=== PATIENT | male | born 1980 | race American Indian/Alaskan Native ===

== ENCOUNTER 2020-09-22 05:56 | Inpatient (IN) | payer OTHER ==
[2020-09-22] MEDS ORDERED: MORPHINE 2 MG/1 ML INJ IV ONE (06:34)
--- NOTE | 2020-09-22 06:37 | Emergency Department Report ---
ED Chest Pain HPI - General Chief Complaint: Chest Pain Stated Complaint: CHEST PAIN Time Seen by Provider: 09/22/20 06:21 Source: patient Mode of arrival: Stretcher Limitations: No Limitations - History of Present Illness Initial Comments: This is a 40-year-old -[place] male presents to the emergency department in custody from [facility] with a complaint of some chest tightness after he has missed his last 3 peritoneal dialysis sessions because of incarceration. He complains of some generalized chest tightness, but denies any significant shortness of breath. Denies any fever, lower extremity or abdominal swelling, any concerns of infection to the peritoneal dialysis catheter. The patient is from [facility] and therefore does not have a local primary care physician or it field technician. He has not taken, nor been given anything for his symptoms prior to presentation today. - Related Data Home Medications Medication Instructions Recorded Confirmed Last Taken Amlodipine Besylate [Norvasc] 10 mg PO DAILY 09/22/20 09/22/20 Unknown Colchicine [Colcrys] 0.6 mg PO DAILY 09/22/20 09/22/20 Unknown Febuxostat [Uloric] 40 mg PO DAILY 09/22/20 09/22/20 Unknown Furosemide [Lasix] 40 mg PO DAILY 09/22/20 09/22/20 Unknown Sevelamer Carbonate [Renvela] 800 mg PO TIDWM 09/22/20 09/22/20 Unknown calcitrioL [Rocaltrol] 0.5 mg PO QDAY 09/22/20 09/22/20 Unknown cloNIDine [Catapres] 0.1 mg PO BID 09/22/20 09/22/20 Unknown Allergies Allergy/AdvReac Type Severity Reaction Status Date / Time No Known Drug Allergies Allergy Unknown Verified 09/22/20 06:35 Heart Score - HEART Score History: Slightly suspicious EKG: Normal Age: < 45 Risk factors: 1-2 risk factors Troponin: 1-3x normal limit HEART Score: 2 - EKG Read Time Time EKG Completed: 07:00 EKG Read Time: 07:01 - Critical Actions Critical Actions: 0-3 pts:0.9-1.7%risk of adverse cardiac event.Candidate for discharge ED Review of Systems ROS: Stated complaint: CHEST PAIN Other details as noted in HPI Comment: All other systems reviewed and negative Constitutional: denies: chills, fever Eyes: denies: eye pain, vision change ENT: denies: ear pain, throat pain Respiratory: denies: cough, shortness of breath Cardiovascular: chest pain. denies: palpitations, edema Gastrointestinal: denies: abdominal pain, vomiting Genitourinary: denies: dysuria, discharge Musculoskeletal: denies: back pain, arthralgia Skin: denies: rash, lesions Neurological: denies: headache, weakness ED Past Medical Hx - Past Medical History Hx Hypertension: Yes Hx Renal Disease: Yes Additional medical history: gout - Social History Smoking Status: Current Every Day Smoker - Medications Home Medications: Home Medications Medication Instructions Recorded Confirmed Last Taken Type Amlodipine Besylate [Norvasc] 10 mg PO DAILY 09/22/20 09/22/20 Unknown History Colchicine [Colcrys] 0.6 mg PO DAILY 09/22/20 09/22/20 Unknown History Febuxostat [Uloric] 40 mg PO DAILY 09/22/20 09/22/20 Unknown History Furosemide [Lasix] 40 mg PO DAILY 09/22/20 09/22/20 Unknown History Sevelamer Carbonate [Renvela] 800 mg PO TIDWM 09/22/20 09/22/20 Unknown History calcitrioL [Rocaltrol] 0.5 mg PO QDAY 09/22/20 09/22/20 Unknown History cloNIDine [Catapres] 0.1 mg PO BID 09/22/20 09/22/20 Unknown History ED Physical Exam - General Limitations: No Limitations - Other Other exam information: GENERAL: The patient is well-developed well-nourished. HENT: Normocephalic. Atraumatic. Patient has moist mucous membranes. EYES: Extraocular motions are intact. NECK: Supple. Trachea is midline. CHEST/LUNGS: Mild coarse breath sounds. No tachypnea accessory muscle use. There is no respiratory distress noted. HEART/CARDIOVASCULAR: Regular. There is no tachycardia. There is no murmur. ABDOMEN: Abdomen is soft, nontender. Patient has normal bowel sounds. Peritoneal dialysis catheter intact without signs of infection. SKIN: Skin is warm and dry. NEURO: The patient is awake, alert, and oriented. The patient is cooperative. The patient has no focal neurologic deficits. Normal speech. MUSCULOSKELETAL: There is no tenderness or deformity. There is no limitation range of motion. ED Course Vital Signs 09/22/20 09/22/20 09/22/20 06:08 08:27 09:00 Temperature 98.5 F Pulse Rate 81 100 H 78 Respiratory 18 15 12 Rate Blood Pressure 140/89 Blood Pressure 127/83 148/90 [Left] O2 Sat by Pulse 98 100 99 Oximetry 09/22/20 09/22/20 09/22/20 10:00 11:00 12:31 Temperature Pulse Rate 75 72 90 Respiratory 12 12 13 Rate Blood Pressure Blood Pressure 128/77 163/98 125/86 [Left] O2 Sat by Pulse 100 99 100 Oximetry - Consultations Consultation #1: 09/22/20 08:04 I spoke to the it field technician on-call, Dr. Rocha. He informed me that the patient may potentially need to be switched to hemodialysis depending on how long he is in custody or incarcerated. Patient will be admitted to the hospital with his chest pain and elevated troponin level, and the nephrology service will consult on this patient. CECILIA score - Cecilia Score Age > 65: (0) No Aspirin use within the Past 7 Days: (0) No 3 or more CAD Risk Factors: (0) No 2 or more Angina events in past 24 hrs: (1) Yes Known CAD with more than 50% Stenosis: (0) No Elevated Cardiac Markers: (1) Yes ST Deviation Greater than 0.5mm: (0) No CECILIA Score: 2 ED Medical Decision Making - Lab Data Result diagrams: 09/22/20 11:56 09/22/20 11:56 - EKG Data -: EKG Interpreted by Me EKG shows normal: sinus rhythm, axis, intervals, QRS complexes (LVH), ST-T waves (Early repolarization) Rate: normal - EKG Data When compared to previous EKG there are: previous EKG unavailable Interpretation: LVH - Radiology Data Radiology results: image reviewed interpreted by me: Chest x-ray does not show any acute process. There are no pleural effusions, obvious pneumonia and there is no pneumothorax. No widened mediastinum. - Medical Decision Making This patient presents to the emergency department from the [facility] saying th at he has missed his last 3 peritoneal dialysis sessions because of incarceration. He now complains of having some chest discomfort. EKG did not have any morphology consistent with ST elevation AR. Patient's labs show elevated BUN and creatinine, decreased GFR, and a slightly elevated/positive troponin level. Nephrology was contacted and consulted. Patient will be admitted to the hospital and was accepted by the hospitalist service. Critical Care Time: No Critical care attestation.: If time is entered above; I have spent that time in minutes in the direct care of this critically ill patient, excluding procedure time. ED Disposition Clinical Impression: ESRD on peritoneal dialysis, Missed dialysis, Elevated troponin Chest pain Qualifiers: Chest pain type: unspecified Qualified Code(s): R07.9 - Chest pain, unspecified Disposition: DC-09 OP ADMIT IP TO THIS HOSP Is pt being admited?: Yes Condition: Fair Time of Disposition: 08:03
--- NOTE | 2020-09-22 07:10 | XRay Report ---
. XR chest 1V ap INDICATION / CLINICAL INFORMATION: CP COMPARISON: None available. FINDINGS: SUPPORT DEVICES: None. HEART / MEDIASTINUM: No significant abnormality. LUNGS / PLEURA: Lungs are clear. Costophrenic sulci are sharp. No pneumothorax. ADDITIONAL FINDINGS: No significant additional findings. IMPRESSION: 1. No acute findings. Signer Name: Kyle Maria MD Signed: 09/22/2020 7:05 AM Workstation Name: [id number]
[2020-09-22 07:21] LABS: Basophils # (Auto) 0.1 K/mm3 (0.0-0.1); Basophils % (Auto) 1.1 % (0.0-1.8); Eosinophils # (Auto) 0.2 K/mm3 (0.0-0.4); Eosinophils % (Auto) 4.5 % (0.0-4.3); Hematocrit 31.9 % (35.5-45.6); Hemoglobin 10.9 gm/dl (11.8-15.2); Lymphocytes # (Auto) 1.4 K/mm3 (1.2-5.4); Lymphocytes % (Auto) 26.5 % (13.4-35.0); Mean Corpuscular HGB Conc 34 % (32-34); Mean Corpuscular Volume 90 fl (84-94); Monocytes # (Auto) 0.6 K/mm3 (0.0-0.8); Monocytes % (Auto) 11.9 % (0.0-7.3); Platelet Count 173 K/mm3 (140-440); Red Blood Count 3.54 M/mm3 (3.65-5.03); Red Cell Distribution Width 13.9 % (13.2-15.2)
[2020-09-22 07:46] LABS: Albumin 4.3 g/dL (3.9-5); Blood Urea Nitrogen 105 mg/dL (9-20); Calcium 10.8 mg/dL (8.4-10.2); Hemolysis Index 5
[2020-09-22 07:48] LABS: Alanine Aminotransferase < 5 units/L (7-56); BUN/Creatinine Ratio 7
[2020-09-22 07:58] LABS: Chol/HDL Ratio 3.43 %; HDL Cholesterol 55 mg/dL (40-59); LDL Cholesterol,Direct 118 mg/dL (50-130)
--- NOTE | 2020-09-22 10:12 | Consultation ---
History of Present Illness - Reason for Consult Consult date: 09/22/20 end stage renal disease Requesting physician: KIRTI MADDOX - History of Present Illness This is a 40-year-old -Af[place] male presents to the emergency department in custody from [facility] with a complaint of some chest tightness after he has missed his last 3 peritoneal dialysis sessions because of incarceration. He complains of some generalized chest tightness, but denies any significant shortness of breath. Denies any fever, lower extremity or abdominal swelling, any concerns of infection to the peritoneal dialysis catheter. The patient is from [facility] and therefore does not have a local primary care physician or client relations representative. He has not taken, nor been given anything for his symptoms prior to presentation today. ROS: Stated complaint: CHEST PAIN Other details as noted in HPI Comment: All other systems reviewed and negative Constitutional: denies: chills, fever Eyes: denies: eye pain, vision change ENT: denies: ear pain, throat pain Respiratory: denies: cough, shortness of breath Cardiovascular: chest pain. denies: palpitations, edema Gastrointestinal: denies: abdominal pain, vomiting Genitourinary: denies: dysuria, discharge Musculoskeletal: denies: back pain, arthralgia Skin: denies: rash, lesions Neurological: denies: headache, weakness - Past Medical History Hx Hypertension: Yes Hx Renal Disease: Yes Additional medical history: gout - Social History Smoking Status: Current Every Day Smoker Medications and Allergies Allergies Allergy/AdvReac Type Severity Reaction Status Date / Time No Known Drug Allergies Allergy Unknown Verified 09/22/20 06:35 Exam - Vital Signs Vital signs: Vital Signs Temp Pulse Resp BP Pulse Ox 98.5 F 81 18 140/89 98 09/22/20 06:08 09/22/20 06:08 09/22/20 06:08 09/22/20 06:08 09/22/20 06:08 - Physical Exam Narrative exam: GENERAL: The patient is well-developed well-nourished. HENT: Normocephalic. Atraumatic. Patient has moist mucous membranes. EYES: Extraocular motions are intact. NECK: Supple. Trachea is midline. CHEST/LUNGS: Mild coarse breath sounds. No tachypnea accessory muscle use. There is no respiratory distress noted. HEART/CARDIOVASCULAR: Regular. There is no tachycardia. There is no murmur. ABDOMEN: Abdomen is soft, nontender. Patient has normal bowel sounds. Peritoneal dialysis catheter intact without signs of infection. SKIN: Skin is warm and dry. NEURO: The patient is awake, alert, and oriented. The patient is cooperative. The patient has no focal neurologic deficits. Normal speech. MUSCULOSKELETAL: There is no tenderness or deformity. There is no limitation range of motion. Results - Lab Results 09/22/20 06:39 09/22/20 06:39 Most recent lab results Calcium 10.8 mg/dL (8.4-10.2) H 09/22/20 06:39 Assessment and Plan Impression: * ESRD * uremia * HTN * chest pain Plan: * restart PD today * unknown how long patient will be incarcerated will need to switch to hemodialysis if shelter and pd not provided at long term * patient refuses hemodialysis catheter placement at this time * follow up am osiel * strict i/is * renal diet * avoid nephrotoxins
[2020-09-22] MEDS ORDERED: ONDANSETRON 4 MG/2 ML INJ IV PRN (11:30)
[2020-09-22] MEDS ORDERED: oxyCODONE /ACETAMINOPHEN 5-325MG TAB PO PRN (11:30)
[2020-09-22] MEDS ORDERED: MORPHINE 4 MG/1 ML INJ IV PRN (11:30)
[2020-09-22] MEDS ORDERED: ACETAMINOPHEN 325 MG TAB PO PRN ×2 (11:30)
--- NOTE | 2020-09-22 11:30 | History and Physical Report ---
History of Present Illness Date of examination: 09/22/20 Date of admission: 09/22/20 08:03 Chief complaint: Chest pain and shortness of breath History of present illness: This is a 40-year-old -[place] male presents to the emergency department in custody from [facility] with a complaint of some chest tightness after he has missed his last 3 peritoneal dialysis sessions because of incarceration. He complains of some generalized chest tightness, but denies any significant shortness of breath. Denies any fever, lower extremity or abdominal swelling, any concerns of infection to the peritoneal dialysis catheter. The patient is from [facility] and therefore does not have a local primary care physician or screen printing supervisor. He has not taken, nor been given anything for his symptoms prior to presentation today. Past History Past Medical History: ESRD (On peritoneal dialysis), hypertension, other (Gout) Past Surgical History: No surgical history Social history: no significant social history Family history: no significant family history Medications and Allergies Allergies Allergy/AdvReac Type Severity Reaction Status Date / Time No Known Drug Allergies Allergy Unknown Verified 09/22/20 06:35 Review of Systems All systems: negative Exam - Constitutional Vitals: Temp Pulse Resp BP Pulse Ox 98.5 F 100 H 15 127/83 100 09/22/20 06:08 09/22/20 08:27 09/22/20 08:27 09/22/20 08:27 09/22/20 08:27 General appearance: Present: no acute distress, well-nourished - EENT Eyes: Present: PERRL ENT: hearing intact, clear oral mucosa - Neck Neck: Present: supple, normal ROM - Respiratory Respiratory effort: normal Respiratory: bilateral: CTA - Cardiovascular Heart Sounds: Present: S1 & S2. Absent: rub, click - Extremities Extremities: pulses symmetrical, No edema Peripheral Pulses: within normal limits - Abdominal General gastrointestinal: Present: soft, non-tender, non-distended, normal bowel sounds Male genitourinary: Present: normal - Integumentary Integumentary: Present: clear, warm, dry - Musculoskeletal Musculoskeletal: gait normal, strength equal bilaterally - Psychiatric Psychiatric: appropriate mood/affect, intact judgment & insight - Neurologic Neurologic: CNII-XII intact, moves all extremities HEART Score - HEART Score Troponin: Troponin T 0.039 ng/mL (0.00-0.029) H 09/22/20 06:39 Results - Labs CBC & Chem 7: 09/22/20 06:39 07 06:39 Labs: Laboratory Last Values WBC 5.2 K/mm3 (4.5-11.0) 09/22/20 06:39 RBC 3.54 M/mm3 (3.65-5.03) L 09/22/20 06:39 Hgb 10.9 gm/dl (11.8-15.2) L 09/22/20 06:39 Hct 31.9 % (35.5-45.6) L 09/22/20 06:39 MCV 90 fl (84-94) 09/22/20 06:39 MCH 31 pg (28-32) 09/22/20 06:39 MCHC 34 % (32-34) 09/22/20 06:39 RDW 13.9 % (13.2-15.2) 09/22/20 06:39 Plt Count 173 K/mm3 (140-440) 09/22/20 06:39 Lymph % (Auto) 26.5 % (13.4-35.0) 09/22/20 06:39 [place] % (Auto) 11.9 % (0.0-7.3) H 09/22/20 06:39 Eos % (Auto) 4.5 % (0.0-4.3) H 09/22/20 06:39 Baso % (Auto) 1.1 % (0.0-1.8) 09/22/20 06:39 Lymph # (Auto) 1.4 K/mm3 (1.2-5.4) 09/22/20 06:39 [place] # (Auto) 0.6 K/mm3 (0.0-0.8) 09/22/20 06:39 Eos # (Auto) 0.2 K/mm3 (0.0-0.4) 09/22/20 06:39 Baso # (Auto) 0.1 K/mm3 (0.0-0.1) 09/22/20 06:39 Seg Neutrophils % 56.0 % (40.0-70.0) 09/22/20 06:39 Seg Neutrophils # 2.9 K/mm3 (1.8-7.7) 09/22/20 06:39 Sodium 143 mmol/L (137-145) 09/22/20 06:39 Potassium 4.3 mmol/L (3.6-5.0) 09/22/20 06:39 Chloride 97.6 mmol/L (98-107) L 09/22/20 06:39 Carbon Dioxide 26 mmol/L (22-30) 09/22/20 06:39 Anion Gap 24 mmol/L 09/22/20 06:39 BUN 105 mg/dL (9-20) H 09/22/20 06:39 Creatinine 16.1 mg/dL (0.8-1.3) H 09/22/20 06:39 Estimated GFR 3 ml/min 09/22/20 06:39 BUN/Creatinine Ratio 7 % 09/22/20 06:39 Glucose 92 mg/dL (75-100) 09/22/20 06:39 Calcium 10.8 mg/dL (8.4-10.2) H 09/22/20 06:39 Total Bilirubin 0.30 mg/dL (0.1-1.2) 09/22/20 06:39 AST 11 units/L (5-40) 09/22/20 06:39 ALT < 5 units/L (7-56) L 09/22/20 06:39 Alkaline Phosphatase 73 units/L (35-129) 09/22/20 06:39 Troponin T 0.039 ng/mL (0.00-0.029) H 09/22/20 06:39 Total Protein 7.2 g/dL (6.3-8.2) 09/22/20 06:39 Albumin 4.3 g/dL (3.9-5) 09/22/20 06:39 Albumin/Globulin Ratio 1.5 % 09/22/20 06:39 Triglycerides 102 mg/dL (2-149) 09/22/20 06:39 Cholesterol 189 mg/dL (50-199) 09/22/20 06:39 LDL Cholesterol Direct 118 mg/dL (50-130) 09/22/20 06:39 HDL Cholesterol 55 mg/dL (40-59) 09/22/20 06:39 Cholesterol/HDL Ratio 3.43 % 09/22/20 06:39 Assessment and Plan Assessment and plan: Chest pain ESRD on peritoneal dialysis 09/22/2020. Patient will be admitted to telemetry with close monitoring. Patient will be placed on chest pain protocol and we will follow serial cardiac isoenzymes and EKGs. Nephrology and cardiology consulted. N.p.o. after midnight for stress test in a.m.
[2020-09-22] MEDS ORDERED: MORPHINE 2 MG/1 ML INJ IV PRN (12:00)
[2020-09-22] MEDS ORDERED: traMADol 50 MG TAB PO PRN (12:00)
[2020-09-22 12:32] VITALS: BP 125/86
[2020-09-22 12:33] LABS: Basophils # (Auto) 0.1 K/mm3 (0.0-0.1); Basophils % (Auto) 1.3 % (0.0-1.8); Eosinophils # (Auto) 0.2 K/mm3 (0.0-0.4); Eosinophils % (Auto) 4.3 % (0.0-4.3); Hematocrit 30.3 % (35.5-45.6); Hemoglobin 10.2 gm/dl (11.8-15.2); Lymphocytes # (Auto) 1.6 K/mm3 (1.2-5.4); Lymphocytes % (Auto) 32.9 % (13.4-35.0); Mean Corpuscular HGB Conc 34 % (32-34); Mean Corpuscular Volume 91 fl (84-94); Monocytes # (Auto) 0.5 K/mm3 (0.0-0.8); Platelet Count 160 K/mm3 (140-440); Red Blood Count 3.34 M/mm3 (3.65-5.03); Red Cell Distribution Width 13.9 % (13.2-15.2)
[2020-09-22 12:56] LABS: Calcium 10.5 mg/dL (8.4-10.2)
[2020-09-22] MEDS ORDERED: DIALYSATE LO CAL 2.5% SOLN 2000 ML IP SCH (14:00)
--- NOTE | 2020-09-23 07:39 | Discharge Summary ---
Providers - Providers Date of Admission: 09/22/20 11:34 Date of discharge: 09/22/20 Attending physician: WILLIAN MONSON 09/22/20 Consult to Cardiac Rehabilitation [CONS] Routine Reason For Exam: Phase I 09/22/20 08:01 Consult to Physician [CONS] Routine Comment: Consulting Provider: GHADA BEY Physician Instructions: Reason For Exam: Missed peritoneal dialysis but incarcerated 09/22/20 11:34 Consult to Cardiology [CONS] Routine Consulting Provider: CASSIDY FITZPATRICK Reason For Exam: cp Primary care physician: LUMBER CHECKER Hospitalization Reason for admission: Chest pain and shortness of breath Condition: Fair Hospital course: This is a 40-year-old -[place]ren[place] male presents to the emergency department in custody from [facility] with a complaint of some chest tightness after he has missed his last 3 peritoneal dialysis sessions because of incarceration. He complained of some generalized chest tightness, but denied any significant shortness of breath. The patient was admitted with diagnosis of chest pain and missed hemodialysis. The patient was admitted to the telemetry and placed on chest pain protocol and we will follow serial cardiac isoenzymes and EKGs. Nephrology and cardiology consulted. Patient was placed under n.p.o. after midnight for stress test in a.m. However, on 09/22/2020 patient left AMA. Nurse expressed risks of leaving AMA. Dedicated discharge time 32 minutes Disposition: DC-07 LEFT AGAINST MED ADVICE Final Discharge Diagnosis (Prints w/discharge instructions): CP, ESRD Core Measure Documentation - Palliative Care Palliative Care/ Comfort Measures: Not Applicable - Core Measures Any of the following diagnoses?: none Exam - Constitutional Vitals: Temp Pulse Resp BP Pulse Ox 98.5 F 90 13 125/86 100 09/22/20 06:08 09/22/20 12:31 09/22/20 12:31 09/22/20 12:31 09/22/20 12:31 Plan Follow up with: FLORECITA FELIX MD [Primary Care Provider] - 7 Days Forms: AMA Form
[2020-09-23] MEDS ORDERED: ENOXAPARIN 30 MG/0.3 ML INJ SUB-Q SCH (10:00)
--- NOTE | 2020-09-23 10:32 | Electrocardiograph Report ---
[facility] Test Date: 2020-09-22 Test Time: 07:22:48 Pat Name: ERICK ODOM Department: Room: A477 Gender: M Olive [employer]ine Tester: LOREN : 1980 Requested By: KIRTI MADDOX Order Number: [id number] Reading MD: Christina Randhawa Measurements Intervals [place] Rate: 64 P: 43 SD: 152 QRS: 16 QRSD: 95 T: 44 QT: 470 QTc: 486 Interpretive Statements Sinus rhythm Probable left atrial enlargement Probable left ventricular hypertrophy ST elev, probable normal early repol pattern No previous ECG available for comparison Electronically Signed On 09-23-2020 10:32:46 EDT by Christina Randhawa
== END 2020-09-22 17:37 | disposition left against medical advice (07) | DRG 313 ==
LOC: ED 05:56 → 4A 08:03 → OBSVTOIN 11:34 → 4A 12:23
PROVIDERS: ADMIT Hospitalist; ATTEND Hospitalist
PROC: 3E1M39Z Irrigation of Peritoneal Cavity using Dialysate, Percutaneous Approach (ICD-10-PCS; principal; 2020-09-22)
DX: R07.89 Other chest pain (principal); N18.6 End stage renal disease; I12.0 Hypertensive chronic kidney disease with stage 5 chronic kidney disease or end stage renal disease; M10.9 Gout, unspecified; Z53.29 Procedure and treatment not carried out because of patient's decision for other reasons; F17.200 Nicotine dependence, unspecified, uncomplicated; R79.89 Other specified abnormal findings of blood chemistry
CPT/HCPCS: 36415; 71045; 80048; 80053; 80061; 84484; 85025; 93005; G0378; J2270